=== PATIENT | female | born 1935 | race Caucasian/White ===

== ENCOUNTER 2016-06-16 18:04 | Observation (INO) | payer MEDICARE, OTHER ==
[~2016-06-16] VITALS: Ht 162.6 cm; Wt 77.4 kg
[~2016-06-16 18:04] MED LIST: ALBU2TAB4 PO; ATEN25TA PO; ATEN50TA PO; ATOR80TA PO; DIGO250T72 PO; DOXY100C2 PO; GUAI120L57 PO; METF500T4 PO; OMEP20TA86 PO; RALO60TA13 PO; SLO64 PO; TRAM50TA2 PO; WARF2TAB7 PO; ZOV800 PO
[2016-06-16 18:12] VITALS: BP 143/78; PULSE 83; RESP 16; O2SAT 96
--- NOTE | 2016-06-16 18:15 | ED.REPORT ---
HPI-Chest Pain 40 and Over Date of Service Jun 16, 2016 ED Provider: Dr. Emiliano Pedroza D.O. A 81 year old female with a medical history including diabetes, hypertension, hyperlipidemia, ventricular bigeminy, and atrial fibrillation previously on warfarin presents to the ED via EMS from Urgent Care with shortness of breath onset today. The patient also reports chest tightness over the past week. At she received Nitro, ASA, and DuoNeb, with short-term relief. Per EMS her BP was 139/82 with otherwise normal vital signs. She was sent to from her urologist' s office after a routine appointment today. Nursing Notes Stated Complaint: SOB,CHEST PAIN Chief Complaint: Chest Pain Nursing Notes Reviewed: Yes Allergies: Coded Allergies: Penicillins (Verified Allergy, Unknown, 06/16/16) TAPE (Verified Allergy, Unknown, 06/16/16) carbamazepine (Verified Allergy, Unknown, 06/16/16) oxycodone (Verified Allergy, Unknown, 06/16/16) pramipexole Di-HCl (Verified Allergy, Unknown, 06/16/16) tizanidine (Verified Allergy, Unknown, 06/16/16) Scheduled Atenolol (Atenolol) 25 Mg Tablet 75 MG PO DAILY Atorvastatin Calcium (Atorvastatin Calcium) 80 Mg Tablet 80 MG PO HS Calcium Citrate/Vitamin D3 (Citracal + D Maximum [place]let) 1 Each Tablet 1 EACH PO BID Magnesium Oxide (Magnesium) 400 Mg Capsule 400 MG PO DAILY Mometasone/Formoterol (Dulera 200 Mcg/5 Mcg Inhaler) 13 Gm Hfa.aer.ad 2 PUFFS INH BID Omeprazole (Omeprazole) 20 Mg Capsule.dr 20 MG PO BID Tolterodine Tartrate ER (Detrol LA) 2 Mg Capsule 2 MG PO HS Scheduled PRN Acyclovir (Acyclovir) 800 Mg Tab 800 MG PO BID PRN PRN cold sores Albuterol HFA (Proair HFA) 8.5 Gm Hfa.aer.ad 1 PUFF INH q4-6 hours PRN PRN For Shortness of Breath Fluticasone Propionate (Flonase Allergy Relief) 50 Mcg/Actuation [place].susp 1 SPRAY NASAL DAILY PRN PRN allergies General Time Seen by MD: 18:14 Chief Complaint Shortness of breath Hx Obtained From: Patient Arrived By: Ambulance Sudden in Onset?: No Onset Occurred: 5 - 8 hours ago Symptom Duration: Since onset Location: : Chest left: Chest right Quality: Painful ("tightness") Severity: Current: Moderate Severity: Maximum: Moderate Associated with: Denies: Fever Context Related History: Reports: Anxiety disorder, Arrhythmia, Asthma, Diabetes mellitus, GERD, Hypertension Recent Healthcare: Recent doctor visit Similar Sx Previous: No Past Medical History Past Medical History Notes: Seen in ED 07/16/15 for near syncope, found hypomagnesemic Seen by gastroenterology 07/01/15 for dysphagia - endoscopy Echo in 2013 EF of 60% Past Medical History Atrial fibrillation previously on warfarin anticoagulation History of reflux-status post Elza fundoplication Sleep apnea Asthma Spinal stenosis Ventricular bigeminy Anxiety Reports: Asthma, Diabetes mellitus, GERD, Hyperlipidemia, Hypertension Reports: Atrial fibrillation, Depression, Urinary tract infection Past Surgical History Cervical fusion Hysterectomy Appendectomy R shoulder Gallbladder Bowel resection Elza fundoplication Upper endoscopy 07/01/2015 Smoking History Never Smoker Social History Alcohol Use: "Social" Drug Use: Denies drug use Other Social History: Good social support, Local resident Ambulatory Status Independent Review of Systems Constitutional: Denies: Fever Respiratory: Reports: Shortness of breath, Denies: Non-productive cough Cardiovascular: Reports: Chest pain ("tightness") GI: Denies: Vomiting Neurologic: Denies: Bladder dysfunction, Bowel dysfunction, Unable to speak Complete sys rev & neg: except as marked. Physical Exam Initial Vital Signs Vital Signs (First) Date Time Temp Pulse Resp B/P Pulse Ox O2 Delivery O2 Flow Rate FiO2 06/16/16 18:12 36.3 83 16 143/78 96 06/16/16 20:30 Room Air Initial VS: Reviewed Head / Eyes: Atraumatic, Normocephalic ENT: Conjunctiva normal, No scleral icterus Neck: Supple, Full range of motion Extremities: Vascular intact, Neuro intact, No swelling Skin: Warm, Dry, No cyanosis Neurologic: Alert, Oriented, Nonfocal Psychiatric: Mood/affect normal, Behavior normal, Normal thought content General/Constitutional: Awake, Alert Respiratory / Chest: Breath sounds NL, Breath sounds = bilat, No respiratory distress Cardiovascular: Heart rate NL, Regular rhythm, Heart sounds NL Abdomen: Soft, Non-tender Interpretation & Diagnostics Lab Results Interpretation Result Diagram: 06/16/16 1700 2/7/17 1700 Test 06/16/16:00 06/16/16 20:45 White Blood Count 8.9th/mm3 (3.8-10.1) Red Blood Count 4.59mil/mm3 (3.90-5.20) Hemoglobin 13.1g/dL (12.0-15.6) Hematocrit 40.4% (35.0-46.0) Mean Corpuscular Volume 88.0fL (81-100) Mean Corpuscular Hemoglobin 28.5pg (27.0-35.0) Mean Corpuscular Hemoglobin Concent 32.4% (32.0-37.0) Red Cell Distribution Width 13.1% (12.3-15.4) Platelet Count 264bil/L (150-400) Neutrophils (%) (Auto) 59.6% (40-74) Lymphocytes (%) (Auto) 30.5% (14-46) Monocytes (%) (Auto) 8.5% (4-12) Eosinophils (%) (Auto) 1.0% (0-5) Basophils (%) (Auto) 0.2% (0-3) Sodium Level 140mEq/L (134-144) Potassium Level 4.4mEq/L (3.5-5.2) Chloride Level 100mEq/L (97-108) Carbon Dioxide Level 25mmol/L (18-29) Blood Urea Nitrogen 22mg/dL (8-27) Creatinine 1.10mg/dL (0.57-1.00) Estimat Glomerular Filtration Rate 69mL/min (>59) Glucose Level 130mg/dL (60-99) Calcium Level 9.8mg/dL (8.5-10.1) Magnesium Level 1.9mg/dL (1.6-2.6) Total Bilirubin 0.3mg/dL (0.0-1.2) Aspartate Amino Transf (AST/SGOT) 18U/L (0-50) Alanine Aminotransferase (ALT/SGPT) 12U/L (0-32) Alkaline Phosphatase 102U/L (25-165) Total Protein 7.9g/dL (6.4-8.4) Albumin 4.0g/dL (3.4-5.0) Total Creatine Kinase 45U/L (21-215) Creatine Kinase MB 1.2ng/mL (0.0-5.3) Creatine Kinase MB % % (0.0-5.0) Troponin T 0.010ug/L (0.0-0.011) Thyroid Stimulating Hormone (TSH) 2.060uIU/mL (0.450-4.500) ECG Interpretation ECG Interpretation: Normal sinus rhythm rate 84 Left axis deviation probably secondary to left anterior fasicicular block Left ventricular hypertophy Time: 18:06 Interpreted by: ED physician X-Ray Chest Interpretation Chest Xray Interpretation: IMPRESSION: No acute cardiopulmonary disease. Dictated by: Spencer Funez M.D. on 06/16/2016 at 18:55 View: Portable, 1 view Interpretation / Wet Read by: Interpret - Radiologist Re-Eval/Medical Decision Med Decision/Clinical Course Chest pain relieved with nitroglycerin. She has not low enough risk for emergency department rule out protocol. She will be admitted to the hospitalist service. She was admitted stable and pain-free. Source of Hx: Old records Time of Eval: 20:05 Patient Status: Condition improved Re-Evaluation/Progress Note: Discussed with patient x-ray and lab results, diagnosis, and plan for admit. Patient agrees with plan for care and all questions were addressed. Consultation : Referral / Consult Name: Dolores Ennis DO Call Returned at: 20:20 Lineman A Class: Agrees with eval, Agrees with plan, Accepts admit Counseled Regarding: Diagnosis, Lab results, Need for admission Discharge & Departure Primary Impression: Chest pain Chest pain type: precordial chest pain Qualified Code: R07.2 - Precordial pain Disposition: ADMITTED TO HOSPITAL Discharge Condition All VS Reviewed: Yes Condition: Stable Referrals: Hernesto Bucio (PCP) Torri Attestation Portions of this note were transcribed by [place] Huertas. I, Dr. Pedroza, personally performed the history, physical exam, and medical decision-making; I reviewed and confirmed the accuracy of the information in the transcribed note. Signed by: Torri Pruitt, 06/16/2016, 20:25 copies to: Hernesto Bucio Todd P DO Jun 16, 2016 18:14 SOCO HUERTAS Jun 16, 2016 20:04
--- NOTE | 2016-06-16 18:58 | DRSVH ---
PROCEDURE: X-RAY CHEST ONE VIEW, PORTABLE ([id number]) INDICATIONS: CHEST PAIN TECHNIQUE: One view of the chest was acquired. COMPARISON: [facility], CR, XR CHEST 2VW, 06/16/2016, 16:38. [facility], CR , XR CHEST 1VW (PORTABLE), 07/19/2015, 21:08. FINDINGS: Surgical changes and devices: Multiple surgical clips in the upper abdomen. Lungs and pleura: No pleural effusions or pneumothorax. Lungs are clear. Mediastinum: Mediastinal contours appear normal. Heart size is normal. Bones and chest wall: No suspicious bony lesions. Overlying soft tissues appear unremarkable. IMPRESSION: No acute cardiopulmonary disease. Dictated by: Spencer Funez M.D. on 06/16/2016 at 18:55 Approved by: Spencer Funez M.D. on 06/16/2016 at 18:56
[2016-06-16 19:00] LABS: BASOPHILS % (AUTO) 0.2 % (0-3); MONOCYTES % (AUTO) 8.5 % (4-12); Mean Corpuscular Hemoglobin 28.5 pg (27.0-35.0); NEUTROPHILS % (AUTO) 59.6 % (40-74); Platelet Count 264 bil/L (150-400)
[2016-06-16 19:13] LABS: TROPONIN T < 0.010 ug/L (0.0-0.011)
[2016-06-16 19:16] LABS: Magnesium 1.9 mg/dL (1.6-2.6)
[2016-06-16] MEDS ORDERED: Nitroglycerin 2% 1 Gm Ointment TOPICAL ONE (20:00)
[2016-06-16] MEDS ORDERED: Atropine 1 mg/10 mL (Code) Syringe IVPUSH PRN (20:25)
[2016-06-16] MEDS ORDERED: Ondansetron 2 mg/mL 2 mL Inj IVPUSH PRN (20:25)
[2016-06-16] MEDS ORDERED: Polyethylene Glycol (PEG) 17 Gm Powder PO PRN (20:25)
[2016-06-16] MEDS ORDERED: Senna-Docusate 8.6-50 mg Tablet PO PRN (20:25)
[2016-06-16] MEDS ORDERED: Alum-Mag Hydrox-Simeth 30 mL Suspension PO PRN (20:25)
[2016-06-16 20:30] VITALS: BP 116/72; PULSE 83; RESP 16; O2SAT 97
[2016-06-16] MEDS ORDERED: Glucose 40% Oral Gel 15 Gm Tube PO PRN (20:45)
[2016-06-16] MEDS ORDERED: FLUT9.9S NASAL (20:57)
[2016-06-16] MEDS ORDERED: MAGN400C PO (20:57)
[2016-06-16] MEDS ORDERED: TOLT2CAP PO (20:57)
[2016-06-16] MEDS ORDERED: ALBU8.5H2 INH (20:57)
[2016-06-16] MEDS ORDERED: OMEP20CA11 PO (20:57)
[2016-06-16] MEDS ORDERED: CALC-761 PO (20:57)
[2016-06-16] MEDS ORDERED: ATOR80TA77 PO (20:57)
[2016-06-16] MEDS ORDERED: MOME13HF INH (20:57)
[2016-06-16] MEDS ORDERED: Tolterodine ER 2 mg ER24 Capsule PO SCH (21:00)
[2016-06-16] MEDS ORDERED: Acyclovir 800 mg Tablet PO PRN (21:05)
[2016-06-16] MEDS ORDERED: Fluticasone 0.05% 15 Spray/2 Gm 16 Gm Nasal Spray NASAL PRN (21:05)
[2016-06-16 21:37] VITALS: BP 130/61; PULSE 83; RESP 16; O2SAT 96
[2016-06-16 21:41] LABS: Creatine Kinase 45 U/L (21-215)
[2016-06-16 21:55] VITALS: BP 159/82; PULSE 85; RESP 19; O2SAT 97
[2016-06-16 22:00] VITALS: PULSE 83
--- NOTE | 2016-06-16 22:00 | NUR ---
admit note pt to floor from ED, able to ambulate with 1pa to scale then bed. pt with some SOB and a strong dry cough. pt on RA SpO2 mid 90s, some intermittent chest tightness mostly with her coughing or activity. Tele SR, son in room with pt. nitro paste on chest wall, SCDs placed, son taking pts purse and INH home. orientated pt to call light, room and bed, all questions answered. Addendum: 06/16/16 at 2352 by CASANDRA NUR RN NS at 80cc/hr started pt NPO after midnight, pt eating toast and tolerating well, HS medications given, echo for morning and MIBI also.
[2016-06-16] MEDS: Pantoprazole 40 mg ER24 Tablet PO SCH (22:49)
[2016-06-16] MEDS: 0.9% Sodium Chloride 1,000 ML IV SCH (22:49)
[2016-06-16] MEDS: Insulin LISPRO 300 Unit/3 mL Inj SUBQ SCH (23:01)
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
[2016-06-16 23:27] LABS: APPEARANCE,URINE CLEAR (CLEAR,HAZY); COLOR,URINE YELLOW (YELLOW); OCCULT BLOOD,URINE NEGATIVE (NEGATIVE); UROBILINOGEN,URINE NORMAL (NORMAL)
[2016-06-17 00:05] VITALS: BP 106/62; PULSE 87; RESP 18; O2SAT 95
[2016-06-17] MEDS: Sodium Chloride LOK Flush 10 mL Syringe IVFLUSH SCH ×3 (00:30→15:35)
[2016-06-17] MEDS: Heparin 5,000 Unit/mL Inj SUBQ SCH ×2 (00:38→09:38)
[2016-06-17 02:26] LABS: BASOPHILS % (AUTO) 0.3 % (0-3); EOSINOPHILS % (AUTO) 1.6 % (0-5); MONOCYTES % (AUTO) 9.2 % (4-12); Mean Corpuscular Hemoglobin 27.9 pg (27.0-35.0); Mean Corpuscular Volume 88.2 fL (81-100); NEUTROPHILS % (AUTO) 58.2 % (40-74); Platelet Count 248 bil/L (150-400)
[2016-06-17 03:02] LABS: Creatine Kinase 45 U/L (21-215)
[2016-06-17 04:14] VITALS: BP 121/72; PULSE 84; RESP 15; O2SAT 94
[2016-06-17] MEDS: Pantoprazole 40 mg ER24 Tablet PO SCH (06:40)
--- NOTE | 2016-06-17 06:45 | NUR ---
nitro paste ED placed nitro paste on pts chest wall around 1999 last night, removed around 0200.
[2016-06-17] MEDS ORDERED: Albuterol 2.5 mg/3 mL Inhalation Solution NEB PRN (07:00)
[2016-06-17] MEDS ORDERED: Fluticasone-Salmererol 250-50 Inhaler INHALATION SCH (08:30)
[2016-06-17] MEDS: 0.9% Sodium Chloride 1,000 ML IV SCH (08:52)
[2016-06-17 09:31] VITALS: BP 115/71; PULSE 82; RESP 16; O2SAT 98
[2016-06-17] MEDS: Insulin LISPRO 300 Unit/3 mL Inj SUBQ SCH ×3 (09:36→16:47)
[2016-06-17 11:01] VITALS: PULSE 80
--- NOTE | 2016-06-17 12:25 | DRSVH ---
[facility] [address] [place] [address] Echocardiogram Report Name: CHRISTINE CARRILLO LStudy Date: 06/17/2016 Height: 64 in Hospital Exam Location: [facility] Weight: 171 lb Gender: Female BSA: 1.8 m2 : 1935 Age: 81 yrs BP: 121/72 mmHg Reason For Study: CHEST PAIN Ordering Physician: HOSPITALIST GUSerformed By: Jamir Chowdhury Referring Physician: Rich SABILLON Interpretation Summary 1. Normal left ventricular size with mild proximal septal thickening and normal systolic function and an estimated EF of 60-65% 2. Normal right ventricular size and systolic function. 3. Nodular thickening on the left coronary cusp of the aortic valve with trace insufficiency Compared to the previous study, no appreciable change Procedure: A two-dimensional transthoracic echocardiogram with color flow and Doppler was performed. The study quality was technically good. Comparison is made with the echocardiogram of 10/04/15. The patient was in normal sinus rhythm during the exam. Left Ventricle: The left ventricle is normal in size. There is normal left ventricular wall thickness. Proximal septal thickening is noted. The ejection fraction is estimated to be 60-65%. There are no focal wall motion abnormalities. Right Ventricle: The right ventricle is normal in size and function. Atria: Both atria are normal in size. The interatrial septum is intact with no evidence for an atrial septal defect. Mitral Valve: The mitral valve is normal in structure and function. There is mild mitral annular calcification. There is trace mitral regurgitation. Aortic Valve: The aortic valve is trileaflet. There is discrete nodular thickening of the left coronary cusp. There is trace aortic regurgitation. Tricuspid Valve: The tricuspid valve is normal in structure and function. There is moderate tricuspid regurgitation. The right ventricular systolic pressure is estimated at 33 mmHg assuming a right atrial pressure of 3 mm Hg. Pulmonic Valve: The pulmonic valve is not well seen, but is grossly normal. There is trace pulmonic regurgitation. Great Vessels: The aortic root is normal size. The dimensions of the ascending aorta are normal. The pulmonary artery is normal size. The IVC is of normal diameter and collapses greater than 50% with a sniff. This suggests a low right atrial pressure of 3 mm Hg. Pericardium/ Pleura There is no pericardial effusion. There is no pleural effusion. MMode/2D Measurements & Calculations LVIDd: 4.6 cm LA dimension: 3.5 cm RA long axis Ao root diam LVIDs: 2.8 cm FS: 38.4 % LA A2 area: 17.9 cm RA area Aortic Jxn: 2.3 cm EPSS: 0.47 cm LA A4 area: 18.8 cm asc Aorta Diam IVSd: 0.99 cm LA length (vol) : 17.0 cm LVPWd: 0.87 cm RA vol Ao Arch Diam (Prox LA vol: 57.2 ml : 49.2 ml Trans): 2.6 cm LA vol index RA : 26.9 mm2 IVC diam: 0.95 cm LV belle. diameter/BSA LV sys. diameter/BSA (cm/m^2): 2.5 (cm/m^2): 1.5 Doppler Measurements & Calculations Ao V2 max MV E max bubba MV E/A: 0.74 TR max bubba : 151.9 cm/sec : 80.2 cm/sec Med Peak E' Bubba : 273.6 cm/sec Ao max PG MV A max bubba TR max P.9 mmHg : 9.2 mmHg : 108.5 cm/sec E/E' med: 18.5 PA V2 max: 71.7 cm/sec Ao mean PG Pulm A Revs Dur PA mean P.2 mmHg : 5.2 mmHg PA Accel Time: 0.08 sec MV A dur: 0.13 sec MV dec time Ao V2 mean PA V2 mean Pulm A Revs Dur - MV A : 0.27 sec : 110.8 cm/sec : 52.3 cm/sec Dur: -0.02 msec Ao V2 VTI: 32.0 cmPA pr(Accel) : 41.6 mmHg Reading Physician:12:24 PM
[2016-06-17] MEDS ORDERED: guaiFENesin DM 200-20 mg/10 mL Syrup PO PRN (15:05)
[2016-06-17 15:07] VITALS: BP 124/72; PULSE 80; RESP 16; O2SAT 98
--- NOTE | 2016-06-17 15:25 | DRSVH ---
PROCEDURE: 1 DAY TREADMILL STRESS TEST Rest and exercise myocardial perfusion SPECT with gated imaging and ejection fraction RADIOPHARMACEUTICAL: 8.6 mCi Tc-99m tetrafosmin IV at rest and 26.1 mCi Tc-99m tetrafosmin IV at peak exercise. Ywc-soi-osywigll was performed. INDICATIONS: 81 year-old woman with chest pain. The patient has diabetes, hypertension, and family h istory of risk factors for coronary artery disease. She also has atrial fibrillation. TECHNIQUE: Radiopharmaceutical was injected at peak stress test, and also at rest. SPECT images wer e obtained. SPECT myocardial perfusion images were displayed in short axis, horizontal long axis, an d vertical long axis views. Gated images were reviewed using [employer] software. COMPARISON: [place], [place], EJECTION FRACTION MUGA, 10/21/2011, 11:18. [place], MYOCARD PERF SPECT MULT, MIBI, 11/23/2011, 9:32. [place], MYOCARD PERF SPECT SINGLE, 06/17/2013, 11:28. CARDIAC STRESS: A standard Thomas treadmill exercise tolerance test was performed by the patient under the supervision of an attending staff. The patient exercised for 2 minutes and 44 seconds; functional aerobic impai rment (CLAUDE) is +30 %. Hemodynamic data: There is normal blood pressure and heart rate response to exercise stress. Patien t achieved 89% of maximum predicted heart rate at peak exercise. Symptoms: Patient denied chest pain during exercise. EKG: No diagnostic EKG changes of ischemia; occasional PVCs. FINDINGS: Raw data: There is good myocardial labeling by radiotracer. No significant motion artifacts. Note i s made of intense uptake in the liver on rest images, partially obscure inferior wall. Left ventricle function: Gated images demonstrate normal left ventricle wall thickening. No segment al wall motion abnormality. No transient ischemic dilation. The left ventricle resting end-diastoli c volume is normal. Left ventricle stress ejection fraction is 54%; normal values are above 45%. The resting ejection fraction calculated by the software is 32% which is likely erroneous. The left vent ricle contracts normally at rest on visual inspection. Myocardial perfusion: There is normal distribution of activity in the left and right ventricular danielito cardium. No fixed or reversible perfusion defects. Comparison to prior examinations: Compared to the last examination 06/17/2013, there is no significant change. IMPRESSION: 1. Normal myocardial perfusion images. 2. Normal left ventricular volume and systolic function. 3. Reduced exercise capacity. No chest pain or diagnostic EKG changes for ischemia. PQRS ATTESTATIONS: Measure 322 - Is this imaging test primarily performed on a low-risk surgery patient for preoperative evaluation within 30 days preceding their low-risk non-cardiac surgery? Low-risk surgery is defined as cardiac or myocardial infarction less than 1%, including (but not limited to) endoscopic pr ocedures, superficial procedures, cataract surgery, and excisional breast surgery: Answer: No Measure 323 - Is this imaging test performed primarily for the monitoring of an asymptomatic patient who had percutaneous coronary intervention on the visit date or within 2 years of the visit date? An swer: No Measure 324 - Is this imaging test performed primarily for the initial detection and risk assessment on an asymptomatic, low coronary heart disease patient? Low CHD risk definition = clinicians should consider the maximum number of available patient factors used to estimate risk based on [place] (A TP III criteria), typically age, gender, diabetes, smoking status, and use of blood pressure medicati on, and integrate age appropriate estimates for missing elements, such as LDL or standard blood press ure. Answer: No Dictated by: Spencer Funez M.D. on 06/17/2016 at 15:12 Approved by: Spencer Funez M.D. on 06/17/2016 at 15:23
[2016-06-17] MEDS ORDERED: BENZ-12 PO (16:13)
--- NOTE | 2016-06-17 16:55 | NUR ---
Case Management: ADDI explained to patient at 1550, all questions answered. Signed original placed in chart, copy given to patient. Pt refused the Medicare Drug information sheet stating her medications are obtained through . Chloé Segura RN
--- NOTE | 2016-06-17 17:09 | PCM.DIMED ---
Radha Paul DO 06/17/16 1659: Discharge Instructions Date of Service Jun 17, 2016 Dates of Hospitalization Jun 16, 2016 at 21:12 Discharge Diagnosis Discharge Diagnosis 1.Acute dyspnea and chest tightness 2. Paroxysmal Atrial fibrillation 3. Diabetes mellitus type 2. 4 Hypertension 5 Dyslipidemia 6 Overactive Bladder Diet Diabetic Activity Limited until seen by PCP Call your provider Fever or Chills, Shortness of breath, Bleeding, Chest pain, Excessive diarrhea, Weakness (unilateral) Patient Instructions Continue taking all of your medications, including your inhalers, as prescribed. Your cholesterol levels were elevated and you should discuss this with your new primary care provider. You can take benzonatate (Tessalon perle) 100 mg by taking 1 capsule by mouth every 8 hours as needed for cough. If you experience worsening shortness of breath or chest pain, please return to the hospital. Follow up with a primary care provider on Wednesday of [facility]. Your appointment is on 06/22/2016 at 10:[address] Lara. You should discuss an asthma action plan with your primary care provider. Follow-up Provider: James Lara DO Follow-up with PCP in: 1 week Nelson Gant MD 06/19/16 1639: Discharge Instructions Attending's Statement The patient was seen and examined together with Dr. Paul on 06/17/2016 and I agree with the history, exam and plan as outlined in the note above. . Radha Paul DO Jun 17, 2016 16:59 Nelson Gant MD Jun 19, 2016 16:39
--- NOTE | 2016-06-17 18:03 | NUR ---
Discharge Pt's discharge completed and Pt leaving with family after finishing dinner. Pt given discharge educational materials on angina and new prescription. Pt's IV access D/C'd and intact. Pt instructed to f/u with new PCP Dr. Lara at the residency clinic on 06/22/2016 at 1030. Pt verbalized understanding of all discharge instructions. All belongings packed and ready to accompany Pt at time of discharge.
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
== END 2016-06-17 19:00 | disposition home or self-care (01) ==
LOC: SED 18:04 → PCC 21:12
PROVIDERS: ADMIT Hospitalist; ATTEND Hospitalist
DX: R06.09 Other forms of dyspnea (principal); R07.89 Other chest pain; I48.0 Paroxysmal atrial fibrillation; E11.9 Type 2 diabetes mellitus without complications; I10 Essential (primary) hypertension; E78.5 Hyperlipidemia, unspecified; N32.81 Overactive bladder; J45.909 Unspecified asthma, uncomplicated
CPT/HCPCS: 36415; 71010; 71020; 78452; 80048; 80053; 80061; 81000; 82550; 82553; 83036; 83735; 84443; 84484; 85025; 93005; 93017; 94640; 99285; A4300; A9502; C8929; G0378; G0463; J1644; J1815; J7030; J7620

== ENCOUNTER 2016-06-27 11:41 | Emergency (ER) | payer MEDICARE, OTHER ==
[~2016-06-27] VITALS: Ht 162.6 cm; Wt 79.5 kg
[~2016-06-27 11:41] MED LIST changes: -ALBU2TAB4 PO; +ALBU8.5H2 INH; -ATEN50TA PO; -ATOR80TA PO; +ATOR80TA77 PO; +BENZ-12 PO; +CALC-761 PO; -DIGO250T72 PO; -DOXY100C2 PO; +FLUT9.9S NASAL; -GUAI120L57 PO; +MAGN400C PO; -METF500T4 PO; +MOME13HF INH; +OMEP20CA11 PO; -OMEP20TA86 PO; -RALO60TA13 PO; -SLO64 PO; +TOLT2CAP PO; -TRAM50TA2 PO; -WARF2TAB7 PO
[2016-06-27 11:55] VITALS: BP 156/91; PULSE 62; RESP 20; O2SAT 99
[2016-06-27 12:55] LABS: BASOPHILS % (AUTO) 0.2 % (0-3); EOSINOPHILS % (AUTO) 0 % (0-5); MONOCYTES % (AUTO) 8.2 % (4-12); Mean Corpuscular Hemoglobin 28.4 pg (27.0-35.0); Mean Corpuscular Volume 86.6 fL (81-100); NEUTROPHILS % (AUTO) 67.9 % (40-74); Platelet Count 338 bil/L (150-400)
--- NOTE | 2016-06-27 12:56 | ED.REPORT ---
HPI-Dyspnea / Wheezing Date of Service Jun 27, 2016 ED Provider: Reji Dutton MD This is a 81 year old female with a history of atrial fibrillation, DM, hypertension, dyslipidemia presenting to the emergency department complaining of shortness of breath that began 2 weeks ago but worsened today. Reports non productive cough at times and chest pressure. Denies production of sputum, rhinorrhea, sore throat, fever, chills, nausea, vomiting, diaphoresis. Pt admitted to the hospital 06/16-06/17/16 for asthma exacerbation ant [facility]. Nursing Notes Stated Complaint: SOB Chief Complaint: Respiratory Distress Nursing Notes Reviewed: Yes Allergies: Coded Allergies: Penicillins (Verified Allergy, Unknown, 06/16/16) TAPE (Verified Allergy, Unknown, 06/16/16) carbamazepine (Verified Allergy, Unknown, 06/16/16) oxycodone (Verified Allergy, Unknown, 06/16/16) pramipexole Di-HCl (Verified Allergy, Unknown, 06/16/16) tizanidine (Verified Allergy, Unknown, 06/16/16) Scheduled Atenolol (Atenolol) 25 Mg Tablet 75 MG PO DAILY Atorvastatin Calcium (Atorvastatin Calcium) 80 Mg Tablet 80 MG PO HS Calcium Citrate/Vitamin D3 (Citracal + D Maximum Caplet) 1 Each Tablet 1 EACH PO BID Magnesium Oxide (Magnesium) 400 Mg Capsule 400 MG PO DAILY Mometasone/Formoterol (Dulera 200 Mcg/5 Mcg Inhaler) 13 Gm Hfa.aer.ad 2 PUFFS INH BID Omeprazole (Omeprazole) 20 Mg Capsule.dr 20 MG PO BID Tolterodine Tartrate ER (Detrol LA) 2 Mg Capsule 2 MG PO HS Scheduled PRN Acyclovir (Acyclovir) 800 Mg Tab 800 MG PO BID PRN PRN cold sores Albuterol HFA (Proair HFA) 8.5 Gm Hfa.aer.ad 1 PUFF INH q4-6 hours PRN PRN For Shortness of Breath Benzonatate (Tessalon Perle) 100 Mg Capsule 100 MG PO TID PRN PRN For Cough Fluticasone Propionate (Flonase Allergy Relief) 50 Mcg/Actuation [place].susp 1 SPRAY NASAL DAILY PRN PRN allergies General Time Seen by MD: 12:28 Chief Complaint Shortness of breath Hx Obtained From: Patient Arrived By: Walk-in Sudden in Onset?: Yes Onset Occurred: More than a week ago... (2 weeks) Symptom Duration: Since onset Pertinent Negative: Pt denies other symptoms Recent Healthcare: Recent doctor visit, Recent hospitalization Past Medical History Past Medical History Notes: Seen in ED 07/16/15 for near syncope, found hypomagnesemic Seen by gastroenterology 07/01/15 for dysphagia - endoscopy Echo in 2013 EF of 60% Past Medical History Atrial fibrillation previously on warfarin anticoagulation History of reflux-status post Elza fundoplication Sleep apnea Asthma Spinal stenosis Ventricular bigeminy Anxiety Reports: Asthma, Diabetes mellitus, GERD, Hyperlipidemia, Hypertension Reports: Atrial fibrillation, Depression, Urinary tract infection Past Surgical History Cervical fusion Hysterectomy Appendectomy R shoulder Gallbladder Bowel resection Elza fundoplication Upper endoscopy 07/01/2015 Smoking History Never Smoker Social History Alcohol Use: "Social" Drug Use: Denies drug use Other Social History: Good social support, Local resident Ambulatory Status Independent Review of Systems Constitutional: Denies: Chills, Fever Respiratory: Reports: Dyspnea on exertion, Shortness of breath, Denies: Non-productive cough Complete sys rev & neg: except as marked. Physical Exam Initial Vital Signs Vital Signs (First) Date Time Temp Pulse Resp B/P Pulse Ox O2 Delivery O2 Flow Rate FiO2 06/27/16 11:55 36.0 62 20 156/91 99 Room Air Initial VS: Reviewed Head / Eyes: Atraumatic, Normocephalic, PERRL ENT: Mucous membranes moist, Conjunctiva normal, No scleral icterus Abdomen / GI: Soft, Non-tender, No guarding, No rebound, No distention Extremities: Vascular intact, Neuro intact, No swelling, No tenderness Skin: Warm, Dry, No cyanosis Neurologic: Alert, Oriented, Nonfocal Psychiatric: Mood/affect normal, Behavior normal, Normal thought content General/Constitutional: Awake, Alert Neck: Atraumatic, Supple, No meningismus, Full range of motion, No swelling, Non-tender, No masses Respiratory / Chest: No respiratory distress, No wheezing Rales / Rhonchi: Positive: Rhonchi diffuse Cardiovascular: Heart rate NL, Regular rhythm, Heart sounds NL, No gallop, No murmurs, No rubs, Cap refill not delayed, Peripheral circulation NL, Pulses = bilaterally Interpretation & Diagnostics ANGIO CT IMPRESSION: 1. No visualized pulmonary embolism. 2. Lungs are clear. Dictated by: Shama Beavers M.D. on 06/27/2016 at 15:30 Approved by: Shama Beavers M.D. on 06/27/2016 at 15:33 Lab Results Interpretation Result Diagram: 06/27/16 1248 06/27/16 1248 Test 06/27/16 12:48 06/27/16 12:59 White Blood Count 13.0th/mm3 (3.8-10.1) Red Blood Count 4.64mil/mm3 (3.90-5.20) Hemoglobin 13.2g/dL (12.0-15.6) Hematocrit 40.2% (35.0-46.0) Mean Corpuscular Volume 86.6fL (81-100) Mean Corpuscular Hemoglobin 28.4pg (27.0-35.0) Mean Corpuscular Hemoglobin Concent 32.8% (32.0-37.0) Red Cell Distribution Width 12.8% (12.3-15.4) Platelet Count 338bil/L (150-400) Neutrophils (%) (Auto) 67.9% (40-74) Lymphocytes (%) (Auto) 22.2% (14-46) Monocytes (%) (Auto) 8.2% (4-12) Eosinophils (%) (Auto) 0% (0-5) Basophils (%) (Auto) 0.2% (0-3) D-Dimer 1.1mg/L (<0.50) Sodium Level 138mEq/L (134-144) Potassium Level 4.3mEq/L (3.5-5.2) Chloride Level 99mEq/L (97-108) Carbon Dioxide Level 23mmol/L (18-29) Blood Urea Nitrogen 33mg/dL (8-27) Creatinine 1.10mg/dL (0.57-1.00) Estimat Glomerular Filtration Rate 69mL/min (>59) Glucose Level 104mg/dL (60-99) Calcium Level 9.5mg/dL (8.5-10.1) Total Bilirubin 0.3mg/dL (0.0-1.2) Aspartate Amino Transf (AST/SGOT) 15U/L (0-50) Alanine Aminotransferase (ALT/SGPT) 13U/L (0-32) Alkaline Phosphatase 90U/L (25-165) Troponin T < 0.010ug/L (0.0-0.011) Pro-B-Type Natriuretic Peptide 202.3pg/mL (0-738) Total Protein 7.6g/dL (6.4-8.4) Albumin 4.1g/dL (3.4-5.0) Urine Color Yellow (YELLOW) Urine Appearance Clear (CLEAR,HAZY) Urine pH 6.0 (5.0-8.0) Urine Specific [place] 1.010 (1.003-1.035) Urine Protein Negativemg/dL (NEG,TRACE) Urine Glucose (UA) Negativemg/dL (NEGATIVE) Urine Ketones Negativemg/dL (NEGATIVE) Urine Occult Blood Negative (NEGATIVE) Urine Nitrite Negative (NEGATIVE) Urine Bilirubin Negative (NEGATIVE) Urine Urobilinogen Normalmg/dL (NORMAL) Urine Leukocyte Esterase Negative (NEGATIVE) Urine RBC 0-2/hpf (0-2) Urine WBC 0-5/hpf (0-5) Urine Epithelial Cells Moderate/hpf (NONE-MOD) Urine Crystals None seen (NONE SEEN) Urine Bacteria None/hpf (NONE-FEW) Urine Hyaline Casts None/lpf (NONE) Urine Granular Casts None seen (NONE SEEN) Urine Waxy Casts None seen (NONE SEEN) Urine Red Blood Cell Casts None seen (NONE SEEN) Urine White Blood Cell Casts None seen (NONE SEEN) Urine Mucus None seen (None Seen) Urine Trichomonas None seen (NONE SEEN) Urine Yeast None (NONE SEEN) Urinalysis Comment None Urine Culture Reflexed Not indicated ECG Interpretation ECG Interpretation: NSR at a rate of 67 Time: 13:11 X-Ray Chest Interpretation Chest Xray Interpretation: IMPRESSION: No acute pulmonary process. Dictated by: Shama Beavers M.D. on 06/27/2016 at 13:05 Approved by: Shama Beavers M.D. on 06/27/2016 at 13:06 Re-Eval/Medical Decision Med Decision/Clinical Course 81-year-old female history of atrial fibrillation, diabetes and recent admission for asthma exacerbation finished her steroids yesterday presenting complaining of shortness of breath. Her oxygen is high 90s on room air. Lungs are clear. Labs remarkable only for elevated white blood cell count in the setting of steroids and elevated d-dimer. CT angio chest no evidence of PE or infection. 3 with recurrence of her asthma exacerbation. Given her one dose of Solu-Medrol here and will discharge her with prednisone taper. Follow-up with primary doctor. Re-Evaluation/Progress : Time of Eval: 15:44 Re-Evaluation/Progress Note: Discussed lab and imaging results and plan for d/c, all questions addressed. Counseled Regarding: Diagnosis, Lab results, Need for follow-up Discharge & Departure Impression: Primary Impression: Asthma exacerbation Disposition: Home Discharge Condition All VS Reviewed: Yes Condition: Stable Patient Instructions: Asthma (ED) Additional Instructions: Thank you for seeking care in the emergency department today. Your lab and imaging studies were reassuring today. Take prednisone as prescribed. Follow-up with your primary care provider, call Wednesday to schedule an appointment. Return to the emergency department for any new or worsening symptoms. Referrals: Hernesto Bucio (PCP) Scribe Attestation Portions of this note were transcribed by Shamika Lainez. I, Dr. Dutton personally performed the history, physical exam and medical decision-making; I reviewed and confirmed the accuracy of the information in the transcribed note. Signed by: irais Lloyd. 06/27/2016, 15:00. Reji Dutton MD Jun 27, 2016 12:56 SHAMIKA LAINEZ Jun 27, 2016 13:03
--- NOTE | 2016-06-27 13:08 | DRSVH ---
PROCEDURE: X-RAY CHEST ONE VIEW, PORTABLE ([id number]) INDICATIONS: dyspnea TECHNIQUE: One view of the chest was acquired. COMPARISON: [facility], CR, XR CHEST 2VW, 06/16/2016, 16:38. [facility], CR , XR CHEST 1VW (PORTABLE), 06/16/2016, 18:18. FINDINGS: Surgical changes and devices: Clips are present overlying the upper abdomen. Lungs and pleura: No pleural effusions or pneumothorax. Lungs are clear. Mediastinum: Mediastinal contours appear normal. Heart size is normal. Bones and chest wall: No suspicious bony lesions. Overlying soft tissues appear unremarkable. IMPRESSION: No acute pulmonary process. Dictated by: Shama Beavers M.D. on 06/27/2016 at 13:05 Approved by: Shama Beavers M.D. on 06/27/2016 at 13:06
[2016-06-27 13:23] LABS: TROPONIN T < 0.010 ug/L (0.0-0.011)
[2016-06-27 13:45] VITALS: BP 133/52; PULSE 62; RESP 14; O2SAT 96
[2016-06-27 13:50] LABS: APPEARANCE,URINE CLEAR (CLEAR,HAZY); COLOR,URINE YELLOW (YELLOW); OCCULT BLOOD,URINE NEGATIVE (NEGATIVE); UROBILINOGEN,URINE NORMAL (NORMAL)
[2016-06-27 14:00] VITALS: BP 132/67; PULSE 66; RESP 17; O2SAT 96
--- NOTE | 2016-06-27 15:34 | DRSVH ---
PROCEDURE: CT ANGIO CHEST PULMONARY EMBOLISM ([id number]) INDICATIONS: cp elevated ddimer TECHNIQUE: After the administration of intravenous contrast, 2 mm thick sections acquired from the pulmonary api berry to the posterior costophrenic angles. 3-dimensional maximum intensity projection (MIP) coronal a nd sagittal reformats were then acquired through the thorax. For radiation dose reduction, the follo wing was used: automated exposure control, adjustment of mA and/or kV according to patient size. COMPARISON: [facility], CT, CHEST ANGIO-PE, 03/05/2010, 13:53. FINDINGS: Image quality: Excellent. Pulmonary arteries: Pulmonary arteries are normal in size, and demonstrate no intraluminal filling d efects to suggest central pulmonary embolism. Lungs and pleura: Lungs are clear. No pleural effusions or pneumothorax. Central and peripheral ai rways are patent. Mediastinum: Heart size is normal, without pericardial effusion. No mediastinal or hilar adenopathy . Thoracic aorta is normal in caliber and enhancement. Esophagus is normal in caliber, with moderat e hiatal hernia. Bones and chest wall: No suspicious bony lesions. Ribs and thoracic spine appear intact throughout. Thyroid gland is unremarkable. No axillary or supraclavicular adenopathy. Abdomen: Visualized upper abdominal solid organs appear normal in the early arterial phase of enhanc ement. IMPRESSION: 1. No visualized pulmonary embolism. 2. Lungs are clear. Dictated by: Shama Beavers M.D. on 06/27/2016 at 15:30 Approved by: Shama Beavers M.D. on 06/27/2016 at 15:33
[2016-06-27] MEDS ORDERED: MethylprednisoLONE Sodium Succinate 62.5 mg/mL 2 mL Inj IVPUSH ONE (15:45)
[2016-06-27 16:31] VITALS: BP 139/61; PULSE 66; RESP 16; O2SAT 96
== END 2016-06-27 16:20 | disposition home or self-care (01) ==
LOC: SED 11:41
DX: J45.901 Unspecified asthma with (acute) exacerbation (principal); E11.9 Type 2 diabetes mellitus without complications; I10 Essential (primary) hypertension; E78.5 Hyperlipidemia, unspecified; J45.909 Unspecified asthma, uncomplicated; K21.9 Gastro-esophageal reflux disease without esophagitis; Z88.0 Allergy status to penicillin; Z88.5 Allergy status to narcotic agent; Z88.8 Allergy status to other drugs, medicaments and biological substances
CPT/HCPCS: 71010; 71275; 80053; 81000; 83880; 84484; 85025; 85379; 87804; 93005; 96374; 99285; J2930; Q9967

== ENCOUNTER 2016-07-07 12:47 | Emergency (ER) | payer MEDICARE, OTHER ==
[~2016-07-07] VITALS: Ht 162.6 cm; Wt 79.5 kg
[2016-07-07 12:57] VITALS: BP 144/87; PULSE 68; RESP 18; O2SAT 97
[2016-07-07 13:11] LABS: BASOPHILS % (AUTO) 0.2 % (0-3); EOSINOPHILS % (AUTO) 0.1 % (0-5); MONOCYTES % (AUTO) 5.9 % (4-12); Mean Corpuscular Hemoglobin 27.9 pg (27.0-35.0); Mean Corpuscular Volume 87.8 fL (81-100); NEUTROPHILS % (AUTO) 76.1 % (40-74); Platelet Count 287 bil/L (150-400)
[2016-07-07] MEDS ORDERED: Albuterol-Ipratropium 3 mL Inhalation Solution NEB ONE (13:40)
[2016-07-07 13:48] LABS: TROPONIN T < 0.010 ug/L (0.0-0.011)
[2016-07-07 13:53] VITALS: PULSE 66; RESP 18; O2SAT 97
[2016-07-07] MEDS ORDERED: predniSONE 20 mg Tablet PO ONE (14:00)
--- NOTE | 2016-07-07 14:10 | DRSVH ---
PROCEDURE: X-RAY CHEST ONE VIEW, PORTABLE ([id number]) INDICATIONS: chest pressure TECHNIQUE: One view of the chest was acquired. COMPARISON: [facility], CR, XR CHEST 1VW (PORTABLE), 06/27/2016, 12:32. FINDINGS: Surgical changes and devices: Multiple clips are present overlying the upper abdomen. Lungs and pleura: No pleural effusions or pneumothorax. Lungs are clear. Mediastinum: Mediastinal contours appear normal. Heart size is normal. Bones and chest wall: No suspicious bony lesions. Overlying soft tissues appear unremarkable. IMPRESSION: No acute pulmonary process. Dictated by: Shama Beavers M.D. on 07/07/2016 at 14:08 Approved by: Shama Beavers M.D. on 07/07/2016 at 14:09
[2016-07-07] MEDS ORDERED: Alum-Mag Hydrox-Simeth 30 mL Suspension PO ONE (15:00)
[2016-07-07 15:29] VITALS: BP_SYST 140; BP_SYST 147; BP_DIAS 65; BP_DIAS 86; PULSE 82; PULSE 88; RESP 14; O2SAT 96
--- NOTE | 2016-07-07 16:37 | ED.REPORT ---
HPI-Chest Pain 40 and Over Date of Service Jul 07, 2016 ED Provider: Lobo Flor MD 81yoF with PMH remarkable for asthma which she has been seen for twice in the last month including an admission in early June. The patient states that the symptoms she is currently having feel similar to the symptoms prior. She describes chest pressure and tightness in her substernal area as well as shortness of breath and a general sense of feeling poorly. She denies wheezing, headaches, changes in vision, swelling in her hands or feet. She states that she just finished a prednisone taper yesterday. Nursing Notes Stated Complaint: CHEST PRESSURE,SOB Chief Complaint: Chest Pain Nursing Notes Reviewed: Yes Allergies: Coded Allergies: Penicillins (Verified Allergy, Unknown, 06/16/16) TAPE (Verified Allergy, Unknown, 06/16/16) carbamazepine (Verified Allergy, Unknown, 06/16/16) oxycodone (Verified Allergy, Unknown, 06/16/16) pramipexole Di-HCl (Verified Allergy, Unknown, 06/16/16) tizanidine (Verified Allergy, Unknown, 06/16/16) Scheduled Atenolol (Atenolol) 25 Mg Tablet 75 MG PO DAILY Atorvastatin Calcium (Atorvastatin Calcium) 80 Mg Tablet 80 MG PO HS Calcium Citrate/Vitamin D3 (Citracal + D Maximum Caplet) 1 Each Tablet 1 EACH PO BID Magnesium Oxide (Magnesium) 400 Mg Capsule 400 MG PO DAILY Mometasone/Formoterol (Dulera 200 Mcg/5 Mcg Inhaler) 13 Gm Hfa.aer.ad 2 PUFFS INH BID Omeprazole (Omeprazole) 20 Mg Capsule.dr 20 MG PO BID Tolterodine Tartrate ER (Detrol LA) 2 Mg Capsule 2 MG PO HS Scheduled PRN Acyclovir (Acyclovir) 800 Mg Tab 800 MG PO BID PRN PRN cold sores Albuterol HFA (Proair HFA) 8.5 Gm Hfa.aer.ad 1 PUFF INH q4-6 hours PRN PRN For Shortness of Breath Benzonatate (Tessalon Perle) 100 Mg Capsule 100 MG PO TID PRN PRN For Cough Fluticasone Propionate (Flonase Allergy Relief) 50 Mcg/Actuation [place].susp 1 SPRAY NASAL DAILY PRN PRN allergies General Time Seen by MD: 13:10 Chief Complaint Chest pressure, Shortness of breath Hx Obtained From: Patient Arrived By: Ambulance Sudden in Onset?: Yes Onset Occurred: 1 - 4 hours ago Symptom Duration: Since onset Location: : Substernal Quality: Pressure Radiation: : Does not radiate Migration/Movement: Reports: None Severity: Current: Mild Recent Healthcare: Recent doctor visit, Recent hospitalization, Recent testing , Previous diagnosis, Prior workup Similar Sx Previous: Yes Past Medical History Past Medical History Notes: Seen in ED 07/16/15 for near syncope, found hypomagnesemic Seen by gastroenterology 07/01/15 for dysphagia - endoscopy Echo in June 2016 with normal EF of 60%, [facility] 2017 cardiac stress test negative Past Medical History Atrial fibrillation previously on warfarin anticoagulation History of reflux-status post Elza fundoplication Sleep apnea Asthma Spinal stenosis Ventricular bigeminy Anxiety Reports: Asthma, Diabetes mellitus, GERD, Hyperlipidemia, Hypertension Reports: Atrial fibrillation, Depression, Urinary tract infection Past Surgical History Cervical fusion Hysterectomy Appendectomy R shoulder Gallbladder Bowel resection Elza fundoplication Upper endoscopy 07/01/2015 Smoking History Never Smoker Social History Alcohol Use: "Social" Drug Use: Denies drug use Other Social History: Good social support, Local resident Ambulatory Status Walker Review of Systems Basic Review of Systems Eyes: Vision NL, No discharge ENT: Hearing NL, No pain, No nasal congestion, No pharyngeal pain : No dysuria, No frequency Hematologic: No bleeding, No bruising Endocrine: No cold intolerance, No heat intolerance, No weight gain, No weight loss Allergy / Immune: No allergy Constitutional: Denies: Chills, Fever Respiratory: Denies: Hemoptysis, Non-productive cough, Pleuritic pain Cardiovascular: Denies: Edema, Palpitations GI: Denies: Abdominal pain, Constipation, Diarrhea, Hematemesis, Hematochezia, Melena, Nausea, Vomiting Musculoskeletal: Denies: Extremity swelling, Neck pain Skin: Denies Diaphoresis, Denies Rash, Denies Unexplained bruises Neurologic: Denies: Change LOC, Confusion, Headache, Lightheaded Psychiatric: Denies: Change mental status, Confusion Complete sys rev & neg: except as marked. Physical Exam Initial Vital Signs Vital Signs (First) Date Time Temp Pulse Resp B/P Pulse Ox O2 Delivery O2 Flow Rate FiO2 07/07/16 12:57 36.3 68 18 144/87 97 Room Air Initial VS: Reviewed Head / Eyes: Atraumatic, Normocephalic, PERRL ENT: Mucous membranes moist, Conjunctiva normal, No scleral icterus Neck: Supple, Non-tender, Full range of motion Back: No CVA tenderness Lymphatic: No lymphadenopathy Extremities: Vascular intact, Neuro intact, No swelling, No tenderness Skin: Warm, Dry, No cyanosis Neurologic: Alert, Oriented, Nonfocal Psychiatric: Mood/affect normal, Behavior normal, Normal thought content General/Constitutional: Awake, Alert, No acute distress, Well appearing, Cooperative, Not toxic appearing Respiratory / Chest: No respiratory distress, No rhonchi, No stridor, No chest tenderness Wheezing / Retractions: Positive: Wheeze localized (right lower base), Wheezing mild Rales / Rhonchi: Positive: Rales bilateral bases Cardiovascular: Heart rate NL, Regular rhythm, Heart sounds NL, No murmurs, Peripheral circulation NL, Pulses = bilaterally, No gross BP differential Abdomen: Soft, Non-tender, McBurney's non-tender, No guarding, No rebound, BS normoactive, No distention, No hernia, No palpable mass Neck: Supple, Full range of motion, No swelling, Non-tender, No masses, No JVD Lower Extremity / Pelvis / MS: Inspection NL, No swelling, Non-tender, No erythema, No deformity, Neurologic intact, Vascular intact, No edema Skin: Color NL, Warm, Dry, Turgor NL Interpretation & Diagnostics Lab Results Interpretation Result Diagram: 07/07/16 1250 07/07/16 1250 Test 07/07/16 12:50 07/07/16 15:29 07/07/16 15:33 White Blood Count 12.5th/mm3 (3.8-10.1) Red Blood Count 4.59mil/mm3 (3.90-5.20) Hemoglobin 12.8g/dL (12.0-15.6) Hematocrit 40.3% (35.0-46.0) Mean Corpuscular Volume 87.8fL (81-100) Mean Corpuscular Hemoglobin 27.9pg (27.0-35.0) Mean Corpuscular Hemoglobin Concent 31.8% (32.0-37.0) Red Cell Distribution Width 13.7% (12.3-15.4) Platelet Count 287bil/L (150-400) Neutrophils (%) (Auto) 76.1% (40-74) Lymphocytes (%) (Auto) 15.6% (14-46) Monocytes (%) (Auto) 5.9% (4-12) Eosinophils (%) (Auto) 0.1% (0-5) Basophils (%) (Auto) 0.2% (0-3) Sodium Level 137mEq/L (134-144) Potassium Level 5.0mEq/L (3.5-5.2) Chloride Level 100mEq/L (97-108) Carbon Dioxide Level 24mmol/L (18-29) Blood Urea Nitrogen 29mg/dL (8-27) Creatinine 1.13mg/dL (0.57-1.00) Estimat Glomerular Filtration Rate 67mL/min (>59) Glucose Level 149mg/dL (60-99) Calcium Level 9.2mg/dL (8.5-10.1) Total Bilirubin 0.4mg/dL (0.0-1.2) Aspartate Amino Transf (AST/SGOT) 16U/L (0-50) Alanine Aminotransferase (ALT/SGPT) 14U/L (0-32) Alkaline Phosphatase 76U/L (25-165) Total Protein 6.7g/dL (6.4-8.4) Albumin 3.7g/dL (3.4-5.0) Procalcitonin 0.05ng/mL (0.00-0.08) Hold Urine Received (Received) Troponin T < 0.010ug/L (0.0-0.011) Re-Eval/Medical Decision Med Decision/Clinical Course 81yoF with prior extensive cardiac workup for the last month presents with recurrence of similar symptoms to previous presentation. Patient reports that she just finished her prednisone taper. Review of prior records indicate that the patient returned to the ED after she finished her last prednisone taper after admission to the hospital on June 16 and . On physical exam the patient has a mild wheeze with some very mild rales in the bases of the lungs bilaterally. The patient was given a dose of prednisone and a duoneb in the ED today however given her presenting symptoms with good oxygenation we will not restart prednisone today. A GI cocktail did not seem to provide relief either making this less likely stomach issues. She has recently started inhaled steroids as well as home nebulizer therapy. There is also a thought that this could be anxiety related as she was recently started on Ativan. She should be evaluated by pulmonology as an outpatient given her recurrence of symptoms after finishing her outpatient oral prednisone. Source of Hx: Old records Counseled Regarding: Diagnosis, Lab results, Need for follow-up Discharge & Departure Primary Impression: Chest tightness or pressure Additional Impressions: Asthma exacerbation Non-cardiac chest pain Ruled Out: Myocardial infarction, Pneumonia, Pulmonary emboli, GERD ( gastroesophageal reflux disease) Disposition: Home Discharge Condition All VS Reviewed: Yes Condition: Stable Patient Instructions: Asthma (ED), Chest Pain (ED), Chronic Obstructive Pulmonary Disease (ED) Additional Instructions: During you visit to [facility] Emergency Department we obtained blood work for cardiac enzymes, infectious markers, blood count levels, and electrolytes. We obtained xray imaging of your chest for possible pneumonia. All your lab values were within normal limits and your imaging showed no acute processes or abnormalities. Your vital signs were stable and safe for discharge. We were not able to give you a definitive diagnosis for your chest pressure today. It does not appear to be cardiac in nature given the prior workup and your lab values today. The medication for acid indigestion did not appear to relieve you chest pressure either and given you have had a Elza surgical procedure, the issue is less likely your stomach. Examining the records it appears that you have presented to the [facility] ED twice after finishing your oral prednisone steroid, this makes the likely cause of your chest tightness your Asthma/COPD. You were able to maintain great oxygenation numbers so from this perspective you were safe for discharge. We will not restart Prednisone medication due to the fact that your oxygen saturation is so good and you have been on Prednisone since early June. intermediate steroid use can have significant complications, and without significant decline in your lung function they are not indicated. To have your lungs further evaluated you will need to follow up with your primary care physician. When taking Ativan anti-anxiety medications DO NOT drive and DO NOT drink alcohol. This medication can be very sedating and when combined with alcohol is very dangerous. Do not hesitate to call emergency services or your primary care physician if you experience any of the following. - High unrelenting fevers. - Uncontrolled vomiting. - Severe hypotension. - dizziness or loss of consciousness. - Chest pain or severe shortness of breath. Please follow up with your primary care physician within the next week following your emergency department visit for further evaluation of your chest pain and medication checks and general well-being. Referrals: Hernesto Bucio (PCP) Jackie Ndiaye MD Attending Statement Seen and examined with Dr Barrow on 07/07. Recent normal stress test, no objective findings for ND today after prolonged symptoms. Not dyspneic. Agree with above. copies to: James Lara DO; Hernesto Bucio Nicholas K DO Jul 07, 2016 13:25 Lobo Flor MD Jul 07, 2016 18:35
[2016-07-07 17:52] VITALS: BP 140/67; PULSE 79; RESP 18; O2SAT 98
== END 2016-07-07 17:53 | disposition home or self-care (01) ==
LOC: SED 12:47 → EDBD 12:47 → SED 17:53
DX: J45.901 Unspecified asthma with (acute) exacerbation (principal); E11.9 Type 2 diabetes mellitus without complications; K21.9 Gastro-esophageal reflux disease without esophagitis; E78.5 Hyperlipidemia, unspecified; I10 Essential (primary) hypertension; I48.91 Unspecified atrial fibrillation; Z87.440 Personal history of urinary (tract) infections; Z79.01 Long term (current) use of anticoagulants; Z88.0 Allergy status to penicillin; Z88.8 Allergy status to other drugs, medicaments and biological substances; Z88.5 Allergy status to narcotic agent
CPT/HCPCS: 36415; 71010; 80053; 82308; 84484; 85025; 93005; 94664; 99285; J7620